=== PATIENT | male | born 1940 | race Caucasian/White ===

== ENCOUNTER → 2017-03-20 | Outpatient (CLI) | payer BC ==
[~2017-03-20] MED LIST: ASPI-435 PO; ATOR10TA82 PO; CALCTAB65 PO; IRBE1TAB48 PO; IRBE1TAB50 PO; METO25TA3 PO; NTRGSL/4 UT; TIMO0.2534 OP
== END | disposition home or self-care (01) ==
LOC: C.LABPVFM 15:12
PROVIDERS: ATTEND Urology
DX: C61 Malignant neoplasm of prostate (principal)

== ENCOUNTER → 2017-04-11 | Outpatient (CLI) | payer BC ==
[2017-04-11 13:08] LABS: CALCIUM 8.9 mg/dl (8.5-10.1)
[2017-04-11 13:12] LABS: ALT/SGPT 23 U/L (12-78); BLOOD UREA NITROGEN 28 mg/dl (7-18); BUN/CREATININE RATIO 30.8 (10-20); CARBON DIOXIDE 26 mmol/L (21-32); CHLORIDE 109 mmol/L (98-107); CHOLESTEROL 110 mg/dl (0-200); GLUCOSE 117 mg/dl (70-99); SODIUM 141 mmol/L (136-145); TRIGLYCERIDES 66 mg/dl (0-150); VERY LOW DENSITY LIPOPROT CALC 13 mg/dl
[2017-04-11 13:16] LABS: ALB/GLOB RATIO 0.9 (0.9-2); ALKALINE PHOSPHATASE 38 U/L (45-117); AST/SGOT 21 U/L (15-37); CHOLESTEROL/HDL RATIO 2.3; HDL CHOLESTEROL 48 mg/dl; LDL CHOLESTEROL CALCULATED 49 mg/dl
[2017-04-11 13:43] LABS: ESTIMATED AVERAGE GLUCOSE 134 mg/dl; HA1C FLAG Normal (Normal)
== END | disposition home or self-care (01) ==
LOC: C.LABPVFM 08:05
PROVIDERS: ATTEND Family Medicine
DX: I10 Essential (primary) hypertension (principal); E78.00 Pure hypercholesterolemia, unspecified; C61 Malignant neoplasm of prostate; R73.01 Impaired fasting glucose; M54.5 Low back pain

== ENCOUNTER → 2017-06-19 | Outpatient (CLI) | payer BC ==
[~2017-06-19] MED LIST changes: -ATOR10TA82 PO; +ATOR10TA88 PO; +OPTIRAY 320 IV PRN
--- NOTE | 2017-06-19 11:38 | DIAGNOSTIC IMAGING REPORT ---
ABD/PELVIS IV AND ORAL CONT CT DOSE: 758.49 mGycm HISTORY: Pancreatic lesion R93.8 Abnormal finding on [id number] Pancreatic [id number] TECHNIQUE: Multiaxial CT images of the abdomen and pelvis were performed following the use of intravenous and oral contrast. A dose lowering technique was utilized adhering to the principles of ALARA. COMPARISON STUDY: 06/18/2016 FINDINGS: Lung bases are clear. Small fixed lateral hernia unchanged. Liver is uniform. Gallstones are present. Kidneys show minimal cortical scarring but are otherwise unremarkable. The adrenal glands are normal. The appearance of the pancreas and is unchanged. The cystic changes of the pancreas previously described have not progressed and appear stable. There is no dilatation of the pancreatic ductal system nor is there evidence for dilatation of the biliary ductal system. The remainder of the abdomen and pelvis otherwise demonstrates stable postoperative changes to the low pelvic region. Bowel pattern is considered nonobstructive. There is no evidence for abnormal adenopathy within the abdominal pelvic or inguinal regions. IMPRESSION: 1. Stable exam compared to the prior study. 2. Cystic pancreatic changes remain stable. 3. No new or interval finding compared to the prior study. 4. Routine one-year surveillance CT scan is suggested. The above report was generated using voice recognition software. It may contain grammatical, syntax or spelling errors. Electronically signed by: Lincoln Wang M.D. 06/19/2017 11:37 AM Dictated Date/Time: 06/19/2017 11:33 AM
== END | disposition home or self-care (01) ==
LOC: C.CTS 08:37
PROVIDERS: ATTEND Nurse Practitioner
DX: K86.9 Disease of pancreas, unspecified (principal); R93.8 Abnormal findings on diagnostic imaging of other specified body structures

== ENCOUNTER → 2017-07-13 | Day surgery (SDC) | payer BC ==
[2017-07-09 13:59] VITALS: Ht 167.6 cm; Wt 85.5 kg
[~2017-07-13] VITALS: Ht 167.6 cm; Wt 85.5 kg
[~2017-07-13] MED LIST changes: -IRBE1TAB50 PO; -OPTIRAY 320 IV PRN; +PROPOFOL IV EMULSION 10 MG/ML 20 ML VIAL IV ONE; +SODIUM CHLORIDE 0.9% 500ML 500 ML IV ONE; -TIMO0.2534 OP
--- NOTE | 2017-07-13 15:00 | Endo History and Physical ---
History & Physical Date of Service: Jul 13, 2017. Chief Complaint: history of polyps Referring Physician: Dr. Montilla History of Present Illness 77 yo CM who presents for colonoscopy secondary to history of colon polyps. Past Medical History Cancer Past Surgical History Hx Cardiac Surgery: Yes (HEART CATH, STENT X1) Hx Internal Defibrillator: No Hx Pacemaker: No Hx Abdominal Surgery: Yes (APPY) Hx of Implantable Prosthesis: No Hx Post-Op Nausea and Vomiting: No Hx Cancer Surgery: Yes (PROSTATECTOMY) Hx Thoracic Surgery: No Hx Orthopedic: No Hx Urinary Tract Surgery: No Family History None Social History Smoking Status: Never Smoker Hx Substance Use: No Hx Alcohol Use: No Allergies Coded Allergies: No Known Allergies (Verified , 07/09/17) Current Medications Reported Home Medications Medications Dose Route/Sig Max Daily Dose Days Date Category Irbesartan 150 Mg Tab 1 Tab PO QAM 07/09/17 Reported Calcium 500 + D (Calcium Carbonate-Vitamin D) 1 Tab Tab 1 Tab PO HS 09/24/15 Reported Aspirin 81 (Aspirin) 81 Mg Tab 1 Tab PO QAM 08/15/15 Reported Nitrostat (Nitroglycerin) 0.4 Mg Tab 0.4 Mg UT UD PRN 06/13/08 Reported Lipitor (Atorvastatin Calcium) 10 Mg Tab 10 Mg PO HS 06/13/08 Reported Toprol-Xl (Metoprolol Succinate) 25 Mg Tabcr 0.5 Tab PO BID 06/13/08 Reported Vital Signs Weight (Kilograms): 85.45 Height (Feet): 5 Height (Inches): 6 Date Time Temp Pulse Resp B/P (MAP) Pulse Ox O2 Delivery O2 Flow Rate FiO2 07/13/17 14:47 36.4 49 20 139/70 (93) 96 Room Air Physical Exam General Appearance: WD/WN, no apparent distress Respiratory/Chest: Auscultation: breath sounds normal Cardiovascular: Heart Auscultation: RRR Abdomen: Bowel Sounds: normal Inspection & Palpation: soft, non-distended, no tenderness, guarding & rebound Assessment and Plan Assessment: 77 yo CM who presents for colonoscopy secondary to history of colon polyps. Plan: Proceed with colonoscopy.
--- NOTE | 2017-07-13 16:21 | GI REPORT ---
Procedure Date: 07/13/2017 3:38 PM Procedure: Colonoscopy Indications: High risk colon cancer surveillance: Personal history of colonic polyps Medicines: Monitored Anesthesia Care Complications: No immediate complications. Estimated Blood Loss: Estimated blood loss: none. Procedure: Pre-Anesthesia Assessment: - Prior to the procedure, a History and Physical was performed, and patient medications and allergies were reviewed. The patient's tolerance of previous anesthesia was also reviewed. The risks and benefits of the procedure and the sedation options and risks were discussed with the patient. All questions were answered, and informed consent was obtained. Prior Anticoagulants: The patient has taken aspirin, last dose was 7 days prior to procedure. ASA Grade Assessment: II - A patient with mild systemic disease. After reviewing the risks and benefits, the patient was deemed in satisfactory condition to undergo the procedure. After I obtained informed consent, the scope was passed under direct vision. Throughout the procedure, the patient's blood pressure, pulse, and oxygen saturations were monitored continuously. The scope was introduced through the anus and advanced to the terminal ileum. The colonoscopy was performed without difficulty. The patient tolerated the procedure well. The quality of the bowel preparation was good. The terminal ileum, ileocecal valve, appendiceal orifice, and rectum were photographed. Findings: Four sessile polyps were found in the sigmoid colon and in the ascending colon. The polyps were 4 to 8 mm in size. These polyps were removed with a hot snare. Resection and retrieval were complete. To prevent bleeding after the polypectomy, one hemostatic clip was successfully placed (MR conditional). There was no bleeding at the end of the procedure. Multiple small-mouthed diverticula were found in the sigmoid colon. 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 Non-bleeding internal hemorrhoids were found during retroflexion. The hemorrhoids were small. Impression: - Four 4 to 8 mm polyps in the sigmoid colon and in the ascending colon, removed with a hot snare. Resected and retrieved. Clip (MR conditional) was placed. - Diverticulosis in the sigmoid colon. - Multiple non-bleeding colonic angioectasias. - Non-bleeding internal hemorrhoids. Recommendation: - Resume previous diet. - Continue present medications. - Repeat colonoscopy for surveillance based on pathology results. - Return to primary care physician as previously scheduled. Danie Brannon DO 07/13/2017 4:21:08 PM This report has been signed electronically. Note Initiated On: 07/13/2017 3:38 PM I attest to the content of the Intraoperative Record and orders documented therein, exceptions below
--- NOTE | 2017-07-13 16:22 | Discharge Instructions ---
Endoscopy Patient Instructions Date / Procedure(s) Performed Jul 13, 2017. Colonoscopy Allergy Information Coded Allergies: No Known Allergies (Verified , 07/09/17) Discharge Date / Findings Jul 13, 2017. Colon polyps Diverticulosis Radiation proctitis Internal hemorrhoids Medication Instructions Stopped Medication(s): stopped ASA last Thursday OK to resume all medications today as prescribed Reported Home Medications Medications Dose Route/Sig Max Daily Dose Days Date Category Irbesartan 150 Mg Tab 1 Tab PO QAM 07/09/17 Reported Calcium 500 + D (Calcium Carbonate-Vitamin D) 1 Tab Tab 1 Tab PO HS 09/24/15 Reported Aspirin 81 (Aspirin) 81 Mg Tab 1 Tab PO QAM 08/15/15 Reported Nitrostat (Nitroglycerin) 0.4 Mg Tab 0.4 Mg UT UD PRN 06/13/08 Reported Lipitor (Atorvastatin Calcium) 10 Mg Tab 10 Mg PO HS 06/13/08 Reported Toprol-Xl (Metoprolol Succinate) 25 Mg Tabcr 0.5 Tab PO BID 06/13/08 Reported Provider Instructions Activity Restrictions - No exercising or heavy lifting for 24 hours. - Do not drink alcohol the day of the procedure. - Do not drive a car or operate machinery until the day after the procedure. - Do not make any important decisions or sign important papers in 24 hours after the procedure. Following Day: - Return to full activity which may include returning to work/school. Diet Start your diet with liquids and light foods (jello, soup, juice, toast). Then eat your usual diet if not nauseated. Treatment For Common After Affects For mild abdominal pain, bloating, or excessive gas: - Rest - Eat lightly - Lie on right side Follow-Up Information Follow-up with Dr. Montilla as scheduled Anesthesia Information What You Should Know You have had a procedure that required some medicine to reduce anxiety and discomfort. This treatment is called moderate sedation. After receiving the treatment, you may be sleepy, but you will be able to breathe on your own. The effects of the treatment may last for several hours. Follow these instructions along with Activity/Diet recommendations noted above: * Do NOT do anything where dizziness or clumsiness would be dangerous. * Rest quietly at home today, then you can be up and about tomorrow. * Have a responsible person stay with you the rest of today. * You may have had an I.V. today. If so, you may take the dressing off later today. Recommendations Call your doctor if: * Trouble breathing * Continuous vomiting for more than 24 hours * Temperature above 101 degrees * Severe abdominal pain or bloating * Pain not relieved by pain medicine ordered * There is increased drainage or redness from any incision * A large amount of rectal bleeding greater than 2-3 tablespoons. (If you had a polyp/s removed or have hemorrhoids, a small amount of blood - from the rectum is to be expected.) * You have any unanswered questions or concerns. IN THE EVENT OF A SERIOUS EMERGENCY, GO TO THE NEAREST EMERGENCY ROOM Your discharge instructions were prepared by provider Danie Brannon. Patient Instructions Signature Page Phillip Patel Patient (or Guardian) Signature/Date: I have read and understand the instructions given to me by my caregivers. Caregiver/RN/Doctor Signature/Date: The above-named patient and/or guardian has received patient instructions on this date. + Original Patient Signature Page (only) stays with chart. Please make copy for patient.
--- NOTE | 2017-07-13 16:42 | Anesthesiology Progress Note ---
Anesthesia Post Op Note Date & Time Jul 13, 2017 at 16:42 Vital Signs Pain Intensity: 0 Vital Signs Past 12 Hours Date Time Temp Pulse Resp B/P (MAP) Pulse Ox O2 Delivery O2 Flow Rate FiO2 07/13/17 16:33 49 20 140/66 (90) 98 Room Air 07/13/17 16:18 47 20 99/58 (72) 97 Room Air 07/13/17 14:47 36.4 49 20 139/70 (93) 96 Room Air Notes Mental Status: alert / awake / arousable, participated in evaluation Pt Amnestic to Procedure: Yes Nausea / Vomiting: adequately controlled Pain: adequately controlled Airway Patency, RR, SpO2: stable & adequate BP & HR: stable & adequate Hydration State: stable & adequate Anesthetic Complications: no major complications apparent
[2017-07-13 16:48] VITALS: BP 150/71; PULSE 49; O2SAT 99
== END | disposition home or self-care (01) ==
LOC: C.GI 13:59
PROVIDERS: ATTEND Internal Medicine
DX: Z12.11 Encounter for screening for malignant neoplasm of colon (principal); D12.5 Benign neoplasm of sigmoid colon; D12.2 Benign neoplasm of ascending colon; K57.30 Diverticulosis of large intestine without perforation or abscess without bleeding; K64.8 Other hemorrhoids; Z86.010 Personal history of colon polyps; Z79.82 Long term (current) use of aspirin; Z79.899 Other long term (current) drug therapy

== ENCOUNTER → 2017-09-01 | Outpatient (CLI) | payer BC ==
[~2017-09-01] MED LIST changes: +ATOR10TA82 PO; -ATOR10TA88 PO; -PROPOFOL IV EMULSION 10 MG/ML 20 ML VIAL IV ONE; -SODIUM CHLORIDE 0.9% 500ML 500 ML IV ONE
[2017-09-01 13:04] VITALS: BP 159/86; PULSE 50; TEMP 36.5; O2SAT 96
--- NOTE | 2017-09-01 14:00 | Radiation Oncology Follow-Up ---
Radiation Oncology Follow-Up Date of Visit Sep 01, 2017. Reason For Visit annual follow up Radiation Completion Date finished 11-13-2015 Diagnosis (1) Prostate cancer Status: Resolved Onset Date: 03/28/2008 Location: left lobe of the prostate Histology Subtype: adenocarcinoma Stage: ll (A) Permanent Comment: Rising PSA, pretreatment PSA 4.5 Status post ultrasound-guided biopsies 03/28/2008 revealing adenocarcinoma 3+4 Status post radical prostatectomy with pelvic lymph node dissection 06/13/2008 Stage pTII [id number] stage IIA Perineural invasion and extraprostatic extension Post prostatectomy rising PSA Initiation of Lupron suppression 09/17/2015 Status post completion of salvage radiation therapy 11/13/2015 received 7040 cGy Last Edited By: Julia Correa on Nov 20, 2015 11:03 History of Present Illness Mr. Patel presented in 2007 with an elevated prostate-specific antigen of 4.5. He underwent ultrasound-guided biopsy on 03/28/2008. A total of 12 biopsies were taken with a volume of 72 g. Biopsies of the right base, right apex, left base and left mid gland were benign. Biopsy from the right mid gland revealed atypical small acinar proliferation. One of 2 biopsies in the left apex were positive for adenocarcinoma Fence grade of 3+4 with no perineural invasion identified. Case: [id number]. Patient ultimately opted to proceed with a radical prostatectomy. This was performed by Dr. Gallagher on 06/13/2008. Left and right obturator lymph nodes were sampled and were negative. The radical prostatectomy specimen revealed a static adenocarcinoma Hayden grade of 3+4 with involvement of the left side of the gland, anterior and posterior extending from apex to base. The tumor represented only approximately 5% of the tissue examined area there was however evidence of perineural invasion and there was evidence of extra prostatic extension. No angiolymphatic invasion was seen. All margins were negative with no evidence of seminal vesicle involvement. Case:[id number]. The pathologic stage was therefore pT3 pN0. The patient was followed with serial prostate-specific antigens. On 09/20/2008 prostate-specific antigen was less than 0.1. 12/27/2008 less than 0.5. It remained at less than 0.5 through 05/25/2010. On it was less than 0.13 and remained there through 08/25/2012. On 07/01/2013 a slight rise to 0.15 was noted. On 10/18/2013 it remained at 0.15. However on 04/27/2014 it increased to 0.68 and ultimately on 06/30/2015 it increased to 0.39. This is compatible with recurrent disease. Dr. Crespo ordered a whole body bone scan performed on 11/2014. This showed no evidence of bony metastatic disease. He also ordered a CT scan of the abdomen and pelvis on May 16 this confirmed postoperative changes from the prostatectomy and pelvic carri dissection. There is no evidence of metastatic disease in the abdomen or pelvis. A 2.2 cm lesion either within or adjacent to the uncinate process of the pancreas was identified. This measured water attenuation and was likely related to the pancreas. Top differential considerations would include IPMA and, serous cystadenoma or possibly a mucinous cystic neoplasm neoplasia. An abnormal lymph node adjacent to the pancreas was considered less likely. Specifically the location and appearance however was not typical for metastatic prostate cancer. A similar appearing lesion is also suggested within the pancreatic body. Correlation with prior images were therefore suggested. Dr. Crespo discussed the implication of a rising prostate-specific antigen and recommended consideration of salvage radiation. He underwent radiation therapy and was treated from 09/18/2015 to 11/13/2015. He received 7040 cGy. Interim History He completed an AUA score sheet and gave a score of 3. He unfortunately has developed increasing problems with leakage dribbling and incontinence. This is occurred over the past 4 months. He now wears a pad daily. He has had some embarrassing episodes. There is excess amount of leakage. He denies burning or pain. He has no bladder pressure. There is no foul order to the urine. He has not been placed on any new medications. He completed and expanded prostate cancer index composite for clinical practice and gave a score of 12 of 12 and urinary incontinence symptoms. He gave a score of 2 of 12 urinary irritation symptoms. He gave a score 0 of 12 bowel symptoms. He gave a score 7 of 12 sexual symptoms. He gave a score of 0 12 and hormonal vitality symptoms. His total was 21 of 60. He had a recheck PSA on 03/20/2017. In that was less than 0.010. The hormonal suppression that he was on was a brief time. Last year we had discussed the CT scan that had shown a pancreatic cyst. His PCP did order a follow-up CT and that is stable. Allergies Coded Allergies: No Known Allergies (Verified , 07/09/17) Home Medications Scheduled Aspirin (Aspirin 81), 1 TAB PO QAM Atorvastatin (Lipitor), 10 MG PO HS Calcium Carbonate-Vitamin D (Calcium 500 + D), 1 TAB PO HS Irbesartan (Irbesartan), 1 TAB PO QAM Metoprolol Succ (Toprol Xl) (Toprol-Xl), 0.5 TAB PO BID Scheduled PRN Nitroglycerin (Nitrostat), 0.4 MG UT UD PRN for Chest Pain Review of Systems Gastrointestinal: Symptoms: WNL Oral: Symptoms: No Problems Respiratory: Symptoms: WNL Urinary: Comments: leakage - does not know he is having the leakage, nocturia times 2 - 3 Skin: Symptoms: No Problems Physical Exam Vital Signs Date Time Temp Pulse Resp B/P (MAP) Pulse Ox O2 Delivery O2 Flow Rate FiO2 09/01/17 13:04 36.5 50 16 159/86 96 Pain: Side: Bilateral Patient Pain Scale: 0 - 10 Initial Pain Intensity: 0.0 Fatigue: None General Appearance: no apparent distress Eyes: normal inspection, EOMI ENT: normal ENT inspection, hearing grossly normal Respiratory/Chest: lungs clear, no respiratory distress, no accessory muscle use Cardiovascular: regular rate, rhythm, no gallop, no murmur Abdomen: non tender, soft, no organomegaly Anal / Rectum: Mild external and internal hemorrhoids. Normal sphincter tone. No rectal masses no rectal bleeding. Prostate bed is flat. Extremities: no pedal edema Neurologic/Psychiatric: no motor/sensory deficits, alert, normal mood/affect Skin: warm/dry Laboratory Studies Test 09/01/17 13:33 Assessment & Plan Plan: An order was given for him to have a PSA in one month. He is due in August. He is going to be having blood work performed by his primary care physician. He'll have a PSA drawn at that time also. He'll be notified as to results. Today we did obtain a urine and urine ASSEMBLY RIVETER to evaluate for possible infection. We did discuss Kegel exercises. We also discussed physical therapy for urinary incontinence. He stated that he did recall previously discussing this with Dr. Crespo. He did not receive any physical therapy after his prostatectomy. He states his symptoms of incontinence resolved. These unfortunately have now recurred. I've asked her to make an appointment with Dr. Crespo sooner if he continues to have symptoms and the urinalysis was negative. He made benefit from a referral for physical therapy help improve his incontinence. He'll otherwise return to our office in 1 year. Total Time In Follow-Up I spent 20 minutes speaking to the patient and performing examination. I spent 15 minutes reviewing information in completing this note. Copy To Jl Montilla M.D.; Amado Crespo MD
[2017-09-01 14:09] LABS: URINE APPEARANCE CLEAR (CLEAR); URINE BILIRUBIN NEG (NEG); URINE COLOR YELLOW; URINE NITRITE NEG (NEG); URINE PH 7.5 (4.5-7.5); URINE SPECIFIC GRAVITY 1.022 (1.000-1.030); UROBILINOGEN NEG (NEG); ZZUR CULT IF INDIC CLEAN CATCH NO
[2017-09-01 14:11] LABS: MANUAL MICROSCOPIC REQUIRED? NO; REVIEW REQ? NO
== END | disposition home or self-care (01) ==
LOC: C.ONC 12:40
PROVIDERS: ATTEND Physician Assistant Medical
DX: Z08 Encounter for follow-up examination after completed treatment for malignant neoplasm (principal); Z92.3 Personal history of irradiation; Z85.46 Personal history of malignant neoplasm of prostate

== ENCOUNTER → 2017-09-26 | Outpatient (CLI) | payer BC ==
[2017-09-26 13:42] LABS: ESTIMATED AVERAGE GLUCOSE 128 mg/dl; HA1C FLAG Normal (Normal)
[2017-09-26 13:47] LABS: ALT/SGPT 25 U/L (12-78); AST/SGOT 20 U/L (15-37); BLOOD UREA NITROGEN 21 mg/dl (7-18); BUN/CREATININE RATIO 23.2 (10-20); CALCIUM 8.7 mg/dl (8.5-10.1); CARBON DIOXIDE 25 mmol/L (21-32); CHLORIDE 109 mmol/L (98-107); CREATININE 0.92 mg/dl (0.60-1.40); GLUCOSE 103 mg/dl (70-99); SODIUM 140 mmol/L (136-145)
[2017-09-26 13:49] LABS: ALB/GLOB RATIO 1.1 (0.9-2); ALKALINE PHOSPHATASE 43 U/L (45-117); CHOLESTEROL 112 mg/dl (0-200); CHOLESTEROL/HDL RATIO 1.7; HDL CHOLESTEROL 66 mg/dl; LDL CHOLESTEROL CALCULATED 35 mg/dl; TRIGLYCERIDES 56 mg/dl (0-150); VERY LOW DENSITY LIPOPROT CALC 11 mg/dl
== END | disposition home or self-care (01) ==
LOC: C.LABPVFM 08:19
PROVIDERS: ATTEND Family Medicine
DX: I10 Essential (primary) hypertension (principal); I25.10 Atherosclerotic heart disease of native coronary artery without angina pectoris; E78.00 Pure hypercholesterolemia, unspecified; R73.01 Impaired fasting glucose; R93.8 Abnormal findings on diagnostic imaging of other specified body structures

== ENCOUNTER → 2018-06-29 | Outpatient (CLI) | payer BC ==
[~2018-06-29] MED LIST changes: +OPTIRAY 320 IV PRN
--- NOTE | 2018-06-29 16:04 | DIAGNOSTIC IMAGING REPORT ---
ABDOMEN AND PELVIS CT WITH IV AND ORAL CONTRAST CT DOSE: 533.44 mGy.cm HISTORY: D49.0 IPMN (intraductal papillary mucinous neoplasm) TECHNIQUE: Multiaxial CT images of the abdomen and pelvis were performed following the use of intravenous and oral contrast. A dose lowering technique was utilized adhering to the principles of ALARA. COMPARISON STUDY: Abdomen and pelvis CT 06/19/2017. Abdomen and pelvis CT 06/18/2016. Abdomen and pelvis CT 07/17/2015. FINDINGS: There is extensive coronary artery calcification. Mild cardiomegaly is noted. 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 The liver, spleen, adrenal glands and kidneys are unremarkable with exception of bilateral renal scarring. There are gallstones within the gallbladder. Mild pancreatic ductal dilatation is unchanged. The duct measures 4 mm in caliber. A cystic lesion adjacent to the uncinate process and pancreatic head, measuring 2.2 cm is unchanged since prior CT of July 17, 2015. An additional cystic lesion measuring 1.6 cm within the uncinate process is unchanged. There are smaller cystic lesions within the pancreatic head. These are also unchanged. Pancreatic parenchymal calcifications are noted. There is no biliary ductal dilatation. No abdominal or pelvic lymphadenopathy is present. The prostate gland is surgically absent. There are clips from lymph node dissection. There is extensive sigmoid diverticulosis without evidence for acute diverticulitis. No suspicious skeletal lesions are identified. Small left-sided neural hernia containing fat and a single sigmoid diverticulum. This is also unchanged. No bowel wall thickening or obstruction. IMPRESSION: 1. Overall, no significant change compared to the prior studies. 2. No change in multiple cystic pancreatic lesions and mild pancreatic ductal dilatation since CT of July 17, 2015. These are indeterminate although likely reflect side branch intraductal papillary mucinous neoplasms. A follow-up CT in one year to ensure stability is recommended. 3. Cholelithiasis. Electronically signed by: Ambrocio Wilks M.D. 06/29/2018 4:02 PM Dictated Date/Time: 06/29/2018 3:53 PM
== END | disposition home or self-care (01) ==
LOC: C.CTS 13:15
PROVIDERS: ATTEND Family Medicine
DX: D49.0 Neoplasm of unspecified behavior of digestive system (principal); K80.20 Calculus of gallbladder without cholecystitis without obstruction

== ENCOUNTER 2019-05-04 18:47 | Inpatient (IN) ==
--- NOTE | 2019-05-04 19:28 | Emergency Department Note ---
ED Visit Note I assisted Dr. Guevara in the care of this patient. Please see attending note for details of ED course. . Resident Activity Tracking Resident Involvement: Resident Care Provided Care Provided: Adult ED : Stroke Qualifiers: CVA mechanism: unspecified Qualified Code(s): I63.9 - Cerebral infarction, unspecified
[2019-05-04] MEDS ORDERED: SODIUM CHLORIDE 0.9% 1000ML 1,000 ML IV SCH (19:30)
[2019-05-04 19:53] LABS: Basophils # (auto) 0.01 K/uL (0-0.2); Basophils % (auto) 0.1 %; Eosinophils # (auto) 0.13 K/uL (0-0.5); Eosinophils % (auto) 1.8 %; Hematocrit (blood only) 45.6 % (42-52); Hemoglobin 16.2 g/dL (14.0-18.0); Immature Granulocytes # (auto) 0.01 K/uL (0.00-0.02); Immature Granulocytes % (auto) 0.1 %; Lymphocytes # (auto) 2.12 K/uL (1.2-3.4); Lymphocytes % (auto) 29.2 %; Mean Corpuscular Hgb Conc 35.5 g/dL (32-36); Mean Corpuscular Volume 89.4 fL (80-100); Mean Platelet Volume 9.7 fL (7.4-10.4); Monocytes # (auto) 0.83 K/uL (0.11-0.59); Monocytes % (auto) 11.4 %; Neutrophils # (auto) 4.17 K/uL (1.4-6.5); Neutrophils % (auto) 57.4 %; Platelet Count 222 K/uL (130-400); RDW Coefficient of Variation 13.8 % (11.5-14.5); RDW Standard Deviation 45.1 fL (36.4-46.3); White Blood Count 7.27 K/uL (4.8-10.8)
[2019-05-04 19:54] LABS: Partial Thromboplastin Ratio 0.8; Partial Thromboplastin Time 21.8 Seconds (21.0-31.0)
--- NOTE | 2019-05-04 20:02 | CT Scan Report ---
CT head/brain wo con CLINICAL HISTORY: 78 years-old Male presenting with Stroke evaluation, right-sided numbness. TECHNIQUE: Multidetector CT imaging of the head was performed without the use of intravenous contrast . IV contrast: None. One or more dose lowering techniques were used consistent with the principles of ALARA (as low as reasonably achievable), including automatic exposure control, mA or kV adjustment t o individual patient size, and/or use of iterative reconstruction. COMPARISON: None. CT DOSE (mGy.cm): The estimated cumulative dose is 537.48 mGy.cm. FINDINGS: Front Office Manager topogram: The patient is edentulous. Ventricles and sulci normal in size. No hemorrhage. Periventricular and subcortical white matter hypo attenuation, nonspecific but likely indicative of chronic small vessel ischemic change. Asymmetric hy poattenuation of the hippocampus and medial left temporal lobe (series 2 image 10). Regional sulcal e ffacement suggests acuity. Additional focal hypoattenuation in the left thalamus, age-indeterminate l acunar infarct. No acute territorial infarct. No mass effect or midline shift. No extra-axial fluid c ollection. Evidence of chronic sinusitis in the maxillary sinuses with postsurgical changes in the pa ranasal sinuses. Calvarium intact. IMPRESSION: 1. Findings suspicious for acute infarct in the left medial temporal lobe potentially involving the left hippocampus. 2. Age-indeterminate lacunar infarct in the left thalamus. Acute infarct cannot excluded. MRI could be considered for further evaluation. The report will be called/faxed according to standard departmental protocol for a critical finding. Electronically signed by: Luis Hair M.D. 05/04/2019 8:01 PM
[2019-05-04 20:08] LABS: Alanine Aminotransferase 25 U/L (12-78); Albumin Level 4.5 gm/dl (3.4-5.0); Aspartate Aminotransferase 21 U/L (15-37); BUN Creatinine Ratio 23.1 (10-20); Blood Urea Nitrogen 28 mg/dl (7-18); Carbon Dioxide 28 mmol/L (21-32); Chloride 105 mmol/L (98-107); Creatinine Clr Calc Pharmacy 49.6 ml/min; Est GFR (African American) 65.1; Est GFR (Non-African American) 56.2; Glucose 132 mg/dl (70-99); Magnesium 2.5 mg/dl (1.8-2.4); Potassium 3.8 mmol/L (3.5-5.1); Sodium 141 mmol/L (136-145)
[2019-05-04 20:13] LABS: Albumin Globulin Ratio 1.1 (0.9-2); Alkaline Phosphatase 58 U/L (45-117); Bilirubin,Total 0.9 mg/dl (0.2-1); Globulin 4.1 gm/dl (2.5-4.0); Total Protein 8.6 gm/dl (6.4-8.2); Troponin I < 0.015 ng/ml (0-0.045)
[2019-05-04] MEDS ORDERED: OPTIRAY 320 125ml IV PRN (20:46)
--- NOTE | 2019-05-04 21:08 | CT Scan Report ---
CT angio neck with con CLINICAL HISTORY: 78 years-old Male presenting with right sided numbness. TECHNIQUE: Multidetector CT angiography of the neck was performed after the administration of intrave nous contrast. 3-D volumetric and/or maximum intensity projection (MIP) images were subsequently jayson nstructed for review. IV contrast: 121 mL of Optiray 320. One or more dose lowering techniques were u sed consistent with the principles of ALARA (as low as reasonably achievable), including automatic ex posure control, mA or kV adjustment to individual patient size, and/or use of iterative reconstructio n. Stenosis measurements were based on NASCET-like criteria (distal lumen diameter as the denominator for stenosis measurement). COMPARISON: None. CT DOSE (mGy.cm): The estimated cumulative dose is 525.19. FINDINGS: Clinical Pharmacy Specialist topogram: Unremarkable. Aortic arch: Normal three-vessel aortic arch with patent origins of the branch vessels. Innominate artery: Patent. Right subclavian artery: Patent. Right common carotid artery: Patent. Right internal and external carotid arteries: Calcified atherosclerotic plaque at the bifurcation wit hout stenosis of the origins of the right internal or external carotid arteries. Left common carotid artery: Patent. Left internal and external carotid arteries: Calcified atherosclerotic plaque at the bifurcation with less than 50% stenosis of the origin of the left internal carotid artery. The remainder of the left ICA is widely patent. Left ECA also patent. Left subclavian artery: Patent. Vertebral arteries: Codominant vertebral arteries. Origins and courses of the bilateral vertebral art eries patent. Other: Atherosclerotic plaque without significant stenosis of the cavernous segments of the internal carotid arteries. Hypoattenuation along the medial left temporal lobe as mentioned on noncontrast CT head performed earlier today. Degenerative changes of the cervical spine. Extensive chronic sinusitis and postsurgical changes of the paranasal sinuses. Lung apices clear. IMPRESSION: 1. Atherosclerosis with less than 50% stenosis of the origin of the left internal carotid artery. No other evidence of significant stenosis. No vessel occlusion or dissection. Electronically signed by: Luis Hair M.D. 05/04/2019 9:06 PM
--- NOTE | 2019-05-04 21:09 | CT Scan Report ---
CT angio head w con CLINICAL HISTORY: 78 years-old Male presenting with right sided numbness. TECHNIQUE: Multidetector CT angiography of the head was performed after the administration of intrave nous contrast. 3-D volumetric and/or maximum intensity projection (MIP) images were subsequently jayson nstructed for review. IV contrast: 121 mL of Optiray 320. One or more dose lowering techniques were u sed consistent with the principles of ALARA (as low as reasonably achievable), including automatic ex posure control, mA or kV adjustment to individual patient size, and/or use of iterative reconstructio n. COMPARISON: Noncontrast CT head performed earlier today. CT DOSE (mGy.cm): The estimated cumulative dose is 525.19 mGy.cm. FINDINGS: Soldering Inspector topogram: Unremarkable. Anterior circulation: Atherosclerosis of the cavernous segments of the internal carotid arteries. Int racranial portions of the internal carotid arteries patent to the level of the termini. Anterior cere bral arteries patent. Middle cerebral arteries patent. Anterior communicating artery patent. Posterior circulation: Codominant vertebral arteries. Intradural portions of the vertebral arteries p atent. Posterior inferior cerebellar arteries patent. Basilar artery patent. Anterior inferior cerebe llar arteries poorly visualized. Superior cerebellar arteries patent. Posterior cerebral arteries pat ent. Right posterior communicating artery (P-comm) patent. Left P-comm hypoplastic or aplastic. Dural venous sinuses: Patent. Other: Chronic sinusitis of the maxillary sinuses with suspected postsurgical changes. IMPRESSION: 1. No evidence of aneurysm, focal vessel occlusion, or significant stenosis of the intracranial lui ana luisa. Electronically signed by: Luis Hair M.D. 05/04/2019 9:08 PM
[2019-05-04] MEDS ORDERED: CLOPIDOGREL BISULFATE 75 MG TAB PO ONE (21:42)
[2019-05-04] MEDS ORDERED: CLOPIDOGREL BISULFATE 75 MG TAB ONE (21:48)
--- NOTE | 2019-05-04 21:52 | History & Physical Report ---
Date of Service May 04, 2019 Assessment & Plan (1) Hypertension: (2) Hypercholesterolemia: (3) CAD S/P percutaneous coronary angioplasty: (4) Prostate cancer: (5) Acute cerebral ischemia: 78-year-old male with past medical history of coronary artery disease status post angioplasty 13 years ago, prostate adenocarcinoma status post radical prostatectomy and radiation, hypertension, hyperlipidemia presents with right-sided weakness yesterday and now numbness. Acute cerebral ischemia: Based on exam mild deficit noted - right leg decreased sensation CT head: Suspicious acute infarct left medial temporal lobe potentially involving left hippocampus, age indeterminate lacunar infarct left thalamus cannot rule out if acute MRI indicated CTA head and neck: Atherosclerosis with less than 50% stenosis of the origin of the left internal carotid artery. No other evidence of significant stenosis. No vessel occlusion or dissection. No evidence of aneurysm, focal vessel occlusion, or significant stenosis of the intracranial arteries. Brain MRI: Pending Given dose of Plavix 75 mg in the ED Started on Plavix 75 mg every morning in addition to continuing home aspirin 81 mg daily Atorvastatin 10 mg increased to 40 mg daily Antihypertensives: Metoprolol 12.5 mg twice daily continued however irbesartan 300 mg every afternoon held for permissive hypertension A.m. 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 Continue home metoprolol 12.5 mg twice daily Hold irbesartan 300 mg QPM in the setting of allowing for permissive hypertension for stroke Home atorvastatin 10 mg daily increased to 40 mg daily Continue home aspirin 81 mg every morning Echo ordered History of prostate cancer in 2007 Had radical prostatectomy with pelvic lymph node dissection in May 2008 followed by Lupron suppression in September 2015 and salvage radiation in October 2015 DVT prophylaxis: SCDs Code: Full per discussion with patient and family Dispo: MedSurg with telemetry (6) IPMN (intraductal papillary mucinous neoplasm): History of Present Illness Chief Complaint: Right sided weakness and numbness Primary Care Provider: Jl Montilla MD 78-year-old male with past medical history of coronary artery disease status post angioplasty 13 years ago, prostate adenocarcinoma status post radical prostatectomy and radiation, hypertension, hyperlipidemia presents with right- sided weakness yesterday and now numbness. Patient reports taking out weeds yesterday when he felt lightheaded, nauseous, and for a couple minutes could not see anything. He rested and was then able to walk to his truck. However, he noticed difficulty pushing the gas pedal with his right foot. He also noticed right arm weakness. He denied any pain at that time. He was able to drive himself home and rested for the day. He woke up this morning feeling tired and when he went on a walk he noticed his right foot and leg were not tracking as well. His family then brought him to the emergency room. Currently he has some weakness and also reports numbness mainly in his right leg. He denies any fever, chills, headache, lightheadedness, shortness of breath, chest pain, nausea, vomiting, abdominal pain, diarrhea/constipation, dysuria, hematuria at this time Past medical history: coronary artery disease status post angioplasty 13 years ago, prostate adenocarcinoma status post radical prostatectomy and radiation, hypertension, hyperlipidemia Past surgical history: Radical prostatectomy and percutaneous coronary intervention with stent placement Social history: Never smoked denies alcohol use, has supportive family Allergies Allergy/AdvReac Type Severity Reaction Status Date / Time No Known Allergies Allergy Unknown Verified 05/04/19 20:10 Home Medications Home Medications Medication Instructions Recorded Confirmed Type aspirin 81 mg PO DAILY 05/04/19 05/04/19 History atorvastatin 10 mg PO DAILY 05/04/19 05/04/19 History calcium carbonate-vitamin D3 1 tab PO QPM 05/04/19 05/04/19 History [Calcium 500 + D (D3)] irbesartan 300 mg PO QPM 05/04/19 05/04/19 History metoprolol tartrate 12.5 mg PO BID 05/04/19 05/04/19 History Past Med/Surg History Medical History IPMN (intraductal papillary mucinous neoplasm) (Acute) Hypertension (Acute) Hypercholesterolemia (Acute) CAD S/P percutaneous coronary angioplasty (Acute) Family History Other Family history non-contributory Social History Preferred Language: Libyan Communication Ability: Effective Curb And Gutter Laborer Required: No Beliefs That Will Affect Care: None Current Living Situation: Spouse Other Information That Helps Us Care for You: No Feels Safe at Home: Yes Safety Concerns: Feels Safe At This Time Smoking Status: Never smoker Do You Dip or Chew Tobacco: No Second Hand Exposure: No Tobacco Cessation Education Requested by Patient: No Hx Alcohol Use: No Hx Substance Use: No Review of Systems Review of Systems: As per HPI Physical Exam 2 Physical Exam: General: In NAD Neuro: A & O x, CN 2-12 intact, no facial drop noted, negative pronator drift, strength 5/5 bilateral upper and lower extremities, sensation intact bilateral upper extremities, sensation decreased over R leg and foot compared to L side HEENT: moist mucous membranes Pulm: CTAB equal breath sounds bilaterally CV: RRR, no m/r/g, cap refill < 3 sec Abdomen: +BS, NTTP in all quadrants, non-distended Lower extremities: no LE edema or calf TTP Results & Data Vital Signs (Past 12 Hours) Vital Signs Temp Pulse Pulse Resp BP BP Pulse Ox 05/04/19 21:01 70 15 158/74 H 98 05/04/19 20:55 66 18 158/77 H 97 05/04/19 20:31 69 21 158/77 H 96 05/04/19 20:01 66 18 164/76 H 95 05/04/19 20:00 67 20 164/76 H 95 05/04/19 18:50 36.8 C 70 18 177/75 H 96 Laboratory Results Abnormal lab results 05/04/19 05/04/19 05/04/19 Range/Units 19:00 19:34 19:34 [place] # (Auto) 0.83 H (0.11-0.59) K/uL BUN 28 H (7-18) mg/dl BUN/Creatinine Ratio 23.1 H (10-20) Glucose 132 H (70-99) mg/dl POC Glucose 124 H (70-99) Magnesium 2.5 H (1.8-2.4) mg/dl Total Protein 8.6 H (6.4-8.2) gm/dl Globulin 4.1 H (2.5-4.0) gm/dl Diagnostic Findings CT head/brain wo con CLINICAL HISTORY: 78 years-old Male presenting with Stroke evaluation, right- sided numbness. TECHNIQUE: Multidetector CT imaging of the head was performed without the use of intravenous contrast. IV contrast: None. One or more dose lowering techniques were used consistent with the principles of ALARA (as low as reasonably achievable), including automatic exposure control, mA or kV adjustment to individual patient size, and/or use of iterative reconstruction. COMPARISON: None. CT DOSE (mGy.cm): The estimated cumulative dose is 537.48 mGy.cm. FINDINGS: Geological Engineer topogram: The patient is edentulous. Ventricles and sulci normal in size. No hemorrhage. Periventricular and subcortical white matter hypoattenuation, nonspecific but likely indicative of chronic small vessel ischemic change. Asymmetric hypoattenuation of the hi ppocampus and medial left temporal lobe (series 2 image 10). Regional sulcal effacement suggests acuity. Additional focal hypoattenuation in the left thalamus, age-indeterminate lacunar infarct. No acute territorial infarct. No mass effect or midline shift. No extra-axial fluid collection. Evidence of chronic sinusitis in the maxillary sinuses with postsurgical changes in the paranasal sinuses. Calvarium intact. IMPRESSION: 1. Findings suspicious for acute infarct in the left medial temporal lobe potentially involving the left hippocampus. 2. Age-indeterminate lacunar infarct in the left thalamus. Acute infarct cannot excluded. MRI could be considered for further evaluation. The report will be called/faxed according to standard departmental protocol for a critical finding. CT angio head w con CLINICAL HISTORY: 78 years-old Male presenting with right sided numbness. TECHNIQUE: Multidetector CT angiography of the head was performed after the administration of intravenous contrast. 3-D volumetric and/or maximum intensity projection (MIP) images were subsequently reconstructed for review. IV contrast: 121 mL of Optiray 320. One or more dose lowering techniques were used consistent with the principles of ALARA (as low as reasonably achievable), including automatic exposure control, mA or kV adjustment to individual patient size, and/or use of iterative reconstruction. COMPARISON: Noncontrast CT head performed earlier today. CT DOSE (mGy.cm): The estimated cumulative dose is 525.19 mGy.cm. FINDINGS: Geological Engineer topogram: Unremarkable. Anterior circulation: Atherosclerosis of the cavernous segments of the internal carotid arteries. Intracranial portions of the internal carotid arteries patent to the level of the termini. Anterior cerebral arteries patent. Middle cerebral arteries patent. Anterior communicating artery patent. Posterior circulation: Codominant vertebral arteries. Intradural portions of the vertebral arteries patent. Posterior inferior cerebellar arteries patent. Basilar artery patent. Anterior inferior cerebellar arteries poorly visualized. Superior cerebellar arteries patent. Posterior cerebral arteries patent. Right p osterior communicating artery (P-comm) patent. Left P-comm hypoplastic or aplastic. Dural venous sinuses: Patent. Other: Chronic sinusitis of the maxillary sinuses with suspected postsurgical changes. IMPRESSION: 1. No evidence of aneurysm, focal vessel occlusion, or significant stenosis of the intracranial arteries. CT angio neck with con CLINICAL HISTORY: 78 years-old Male presenting with right sided numbness. TECHNIQUE: Multidetector CT angiography of the neck was performed after the administration of intravenous contrast. 3-D volumetric and/or maximum intensity projection (MIP) images were subsequently reconstructed for review. IV contrast: 121 mL of Optiray 320. One or more dose lowering techniques were used consistent with the principles of ALARA (as low as reasonably achievable), including automatic exposure control, mA or kV adjustment to individual patient size, and/or use of iterative reconstruction. Stenosis measurements were based on NASCET-like criteria (distal lumen diameter as the denominator for stenosis measurement). COMPARISON: None. CT DOSE (mGy.cm): The estimated cumulative dose is 525.19. FINDINGS: Geological Engineer topogram: Unremarkable. Aortic arch: Normal three-vessel aortic arch with patent origins of the branch vessels. Innominate artery: Patent. Right subclavian artery: Patent. Right common carotid artery: Patent. Right internal and external carotid arteries: Calcified atherosclerotic plaque at the bifurcation without stenosis of the origins of the right internal or external carotid arteries. Left common carotid artery: Patent. Left internal and external carotid arteries: Calcified atherosclerotic plaque at the bifurcation with less than 50% stenosis of the origin of the left internal carotid artery. The remainder of the left ICA is widely patent. Left ECA also patent. Left subclavian artery: Patent. Vertebral arteries: Codominant vertebral arteries. Origins and courses of the bilateral vertebral arteries patent. Other: Atherosclerotic plaque without significant stenosis of the cavernous segments of the internal carotid arteries. Hypoattenuation along the medial left temporal lobe as mentioned on noncontrast CT head performed earlier today. Degenerative changes of the cervical spine. Extensive chronic sinusitis and postsurgical changes of the paranasal sinuses. Lung apices clear. IMPRESSION: 1. Atherosclerosis with less than 50% stenosis of the origin of the left internal carotid artery. No other evidence of significant stenosis. No vessel occlusion or dissection. Medications Administered Current Inpatient Medications Clopidogrel Bisulfate (Plavix) 75 mg PO NOW ONE Stop: 05/04/19 21:43 Sodium Chloride (Nss 1000ml) 1,000 mls @ 100 mls/hr IV .Q10H TITO Stop: 05/05/19 05:29 Last Admin: 05/04/19 21:06 Dose: 100 mls/hr Documented by: Ioversol (Optiray 320 125ml) 121 ml IV ONCE PRN PRN Reason: Interaction Checking Stop: 05/08/19 20:45 Last Admin: 05/04/19 20:49 Dose: 121 ml Documented by: Code Status & VTE Plan Code Status Full VTE Prophylaxis Plan VTE Prophylaxis will be ordered: Yes Supervising Physician Co-Signing Physician Notes Pt seen/examined in conjunction with resident MD Ling Koenig. Orders and plan of admission formulated with resident. 78 y/o M Hx CAD, prostate CA, HTN, HLD. Presenting with R sided numbness and reports R weakness one day prior. A CT on arrival to the ER demonstrated an acute infarct in the left medial temporal lobe involving the left hippocampus. This was confirmed on MRI. OE AAO x 3 S1,2 R CTAB NT, ND No CCE Motor exam is WNL - impaired LE sensation, no additional deficits. P: The pt is admitted with a CVA protocol. He will be evaluated by neurology. He has been placed on Plavix along with his daily ASA and we have increased his statin dose to 40mg from 10mg. He can likely restart his meds AM as his infarct most likely dates back 2 days. PG Care Time/CCT Total # of Minutes Spent Total Time Spent with Patient: Total time spent is greater than 50% in coordination of care (as documented) at patient's floor/unit and/or counseling patient: Resident Activity Tracking Resident Involvement: Resident Care Provided Care Provided: Adult Hospital Medicine
[2019-05-04] MEDS ORDERED: PHARMACIST DISCHARGE MED REC CONSULT PRN (22:59)
[2019-05-05] MEDS: CALCIUM 600MG + VIT D 400 IU TAB PO SCH ×2 (00:22→20:00)
[2019-05-05] MEDS: METOPROLOL TARTRATE 25 MG TAB PO SCH ×3 (00:22→20:00)
--- NOTE | 2019-05-05 02:07 | Emergency Department Note ---
Entered by Eitan Peres acting as a scribe for History of Present Illness General Chief complaint: TIA Symptoms Stated complaint: STROKE SYMTOMS Time Seen by Provider: 05/04/19 18:54 Source: patient History of Present Illness Provider complaint: Stroke like symptoms Onset (ago): day(s) 1 Location: head Radiation: extremity (Right lower) Pain Consistency: + other (Improving ) Relieved By: + none Exacerbated By: + none Associated symptoms: + weakness and + other (Positive numbness) The patient is an 78 year old male who presents to the Emergency Room with complaints of stroke like symptoms that started yesterday but are consistently improving throughout today. The patient states he was doing yard work yesterday around 1300 when he started feeling near syncopal. The patient then sat down and did lose his vision for a few seconds but he did not syncopize or fall. After this event he started feeling right sided weakness and numbness that has been i mproving since last night. However, currently he still has some right sided facial numbness along with right lower extremity numbness. Due to his right sided deficits, he is having trouble ambulating and balancing. The patient has a history of HLD, HTN, CAD, and TN and takes Aspirin daily. He does not have any history of TIA or stroke. Home Medications Home Medications Medication Instructions Recorded Confirmed Type aspirin 81 mg PO DAILY 05/04/19 05/04/19 History atorvastatin 10 mg PO DAILY 05/04/19 05/04/19 History calcium carbonate-vitamin D3 1 tab PO QPM 05/04/19 05/04/19 History [Calcium 500 + D (D3)] irbesartan 300 mg PO QPM 05/04/19 05/04/19 History metoprolol tartrate 12.5 mg PO BID 05/04/19 05/04/19 History Allergies Allergy/AdvReac Type Severity Reaction Status Date / Time No Known Allergies Allergy Unknown Verified 05/04/19 20:10 Past Med/Surg History Medical History IPMN (intraductal papillary mucinous neoplasm) (Acute) Hypertension (Acute) Hypercholesterolemia (Acute) CAD S/P percutaneous coronary angioplasty (Acute) Family History Other Family history non-contributory Social History Preferred Language: Polish Communication Ability: Effective Drug Clerk Required: No Beliefs That Will Affect Care: None Current Living Situation: Spouse Other Information That Helps Us Care for You: No Feels Safe at Home: Yes Safety Concerns: Feels Safe At This Time Smoking Status: Never smoker Do You Dip or Chew Tobacco: No Second Hand Exposure: No Tobacco Cessation Education Requested by Patient: No Hx Alcohol Use: No Hx Substance Use: No Review of Systems See HPI for pertinent positives & negatives. and A total of 10 systems reviewed and were otherwise negative Physical Exam Vital Signs Vital Signs - 24 hr 05/04/19 18:50 05/04/19 20:00 05/04/19 20:01 Temperature 36.8 C Temperature Source Oral Sepsis Recent Fever Within 48 Hours No Sepsis Action Taken by Nursing No Action Required Pulse Rate 70 67 Pulse Rate [Right Apical] 66 Pulse Rate from SpO2 Sensor 68 Respiratory Rate 18 20 18 Respiratory Effort / Characteristics Non-Labored Spontaneous Non-Labored Respiratory Depth Normal Normal Blood Pressure 177/75 H 164/76 H Blood Pressure [Left Arm] 164/76 H Blood Pressure Mean 109 105 Blood Pressure Mean [Left Arm] 105 Blood Pressure Position [Left Arm] Sitting Pulse Oximetry 96 95 95 Oxygen Delivery Method Room Air Room Air Room Air 05/04/19 20:31 05/04/19 20:55 05/04/19 21:01 Temperature Temperature Source Sepsis Recent Fever Within 48 Hours Sepsis Action Taken by Nursing Pulse Rate 69 70 Pulse Rate [Right Apical] 66 Pulse Rate from SpO2 Sensor 63 69 Respiratory Rate 21 18 15 Respiratory Effort / Characteristics Respiratory Depth Blood Pressure 158/77 H 158/74 H Blood Pressure [Left Arm] 158/77 H Blood Pressure Mean 104 102 Blood Pressure Mean [Left Arm] 104 Blood Pressure Position [Left Arm] Pulse Oximetry 96 97 98 Oxygen Delivery Method Room Air Room Air 05/04/19 21:31 Temperature Temperature Source Sepsis Recent Fever Within 48 Hours Sepsis Action Taken by Nursing Pulse Rate 61 Pulse Rate [Right Apical] Pulse Rate from SpO2 Sensor 63 Respiratory Rate 13 Respiratory Effort / Characteristics Respiratory Depth Blood Pressure 166/63 H Blood Pressure [Left Arm] Blood Pressure Mean 97 Blood Pressure Mean [Left Arm] Blood Pressure Position [Left Arm] Pulse Oximetry 97 Oxygen Delivery Method Room Air GENERAL: Awake, alert, well-appearing, in no distress HENT: Normocephalic, atraumatic. Oropharynx with dry mucous membranes and otherwise unremarkable. EYES: Normal conjunctiva. Sclera non-icteric. NECK: Supple. No nuchal rigidity. FROM. No JVD. RESPIRATORY: Clear to auscultation. CARDIAC: Regular rate, normal rhythm. Extremities warm and well perfused. Pulses equal. ABDOMEN: Soft, non-distended. No tenderness to palpation. No rebound or guarding. No masses. RECTAL: Deferred. MUSCULOSKELETAL: Chest examination reveals no tenderness. The back is symmetrical on inspection without obvious abnormality. There is no CVA tenderness to palpation. No joint edema. LOWER EXTREMITIES: Calves are equal size bilaterally and non-tender. No edema. No discoloration. NEURO: Normal sensorium. No sensory or motor deficits noted. Intact cerebellar function including finger to nose, alternating palms, and heel to lewis. 5/5 strength and SILT x4 extremities. Subjective decreased sensation of the right face and right extremities. SKIN: No rash or jaundice noted. Course 1899: The patient was evaluated in room B04B by Dr. Rupinder Foss [facility] , and a complete history and physical examination were performed. 2009: I spoke to Dr. Ashley [facility] Hospitalist about the patient's case and he said to call neurology. 2017: Dr. Rupinder Foss [facility] spoke with Dr. Libby Marr about the patient's case and he said to admit the patient. 2019: Both Dr. Bucio and Pretty updated the patient on results and the treatment plan. 2039: Dr. Rupinder Foss [facility] spoke to Dr. Ashley and he will be accepting the patient for further evaluation. Consultations Consultation #1: I spoke to Dr. Dion Kilpatrick [facility] Hospitalist about the patient's case and he said to call neurology. Time: 20:10 Consultation #2: Dr. Rupinder Foss [facility] spoke with Dr. Libby Marr about the patient's case and he said to admit the patient. Time: 20:18 Consultation #3: Dr. Rupinder Foss [facility] spoke to Dr. Ashley and he will be accepting the patient for further evaluation. Time: 20:40 Administered Medications Sodium Chloride (Nss 1000ml) 1,000 mls @ 100 mls/hr IV .Q10H TITO Stop: 05/05/19 05:29 Last Infusion: 05/04/19 22:45 Dose: 0 mls/hr Documented by: [id number] Admin: 05/04/19 21:06 Dose: 100 mls/hr Documented by: [id number] Ioversol (Optiray 320 125ml) 121 ml IV ONCE PRN PRN Reason: Interaction Checking Stop: 05/08/19 20:45 Last Admin: 05/04/19 20:49 Dose: 121 ml Documented by: [id number] Metoprolol Tartrate (Lopressor) 12.5 mg PO BID TITO Stop: 06/04/19 08:59 Last Admin: 05/05/19 00:22 Dose: 12.5 mg Documented by: [id number] Multivitamins/Minerals (Caltrate Plus) 1 tab PO QPM TITO Stop: 06/04/19 20:59 Last Admin: 05/05/19 00:22 Dose: 1 tab Documented by: [id number] Discontinued Medications Atorvastatin Calcium (Lipitor) 40 mg PO QAM TITO Stop: 06/04/19 08:59 Last Admin: 05/05/19 00:22 Dose: 40 mg Documented by: [id number] Clopidogrel Bisulfate (Plavix) Confirm Administered Dose 75 mg .ROUTE .STK-MED ONE Stop: 05/04/19 21:49 Last Admin: 05/04/19 21:52 Dose: 75 mg Documented by: [id number] Medical Decision Making Differential Diagnosis Differential Diagnosis includes but is not limited to dehydration, stroke, anemia, hypoglycemia, hyponatremia, hypernatremia, urinary tract infection, pneumonia, bronchitis, sepsis, gastroenteritis, additional abdominal pathology, metabolic abnormalities and infections. Medical Records Attestation: I reviewed the patient's medical records. Home Medications Current Medication List: was personally reviewed by me Laboratory Data Attestation: I reviewed the patient's lab results. Result diagrams: 05/04/19 19:34 05/04/19 19:34 Lab Results 05/04/19 05/04/19 05/04/19 Range/Units 19:00 19:34 19:34 WBC 7.27 (4.8-10.8) K/uL RBC 5.10 (4.7-6.1) M/uL Hgb 16.2 (14.0-18.0) g/dL Hct 45.6 (42-52) % MCV 89.4 (80-100) fL MCH 31.8 (25-34) pg MCHC 35.5 (32-36) g/dL RDW Std Deviation 45.1 (36.4-46.3) fL RDW Coeff of Katey 13.8 (11.5-14.5) % Plt Count 222 (130-400) K/uL MPV 9.7 (7.4-10.4) fL Immature Gran % (Auto) 0.1 % Neut % (Auto) 57.4 % Lymph % (Auto) 29.2 % [place] % (Auto) 11.4 % Eos % (Auto) 1.8 % Baso % (Auto) 0.1 % Immature Gran # (Auto) 0.01 (0.00-0.02) K/uL Neut # (Auto) 4.17 (1.4-6.5) K/uL Lymph # (Auto) 2.12 (1.2-3.4) K/uL [place] # (Auto) 0.83 H (0.11-0.59) K/uL Eos # (Auto) 0.13 (0-0.5) K/uL Baso # (Auto) 0.01 (0-0.2) K/uL PT 10.0 (9.0-12.0) Seconds INR 1.0 (0.9-1.1) APTT 21.8 (21.0-31.0) Seconds PTT Ratio 0.8 Sodium (136-145) mmol/L Potassium (3.5-5.1) mmol/L Chloride (98-107) mmol/L Carbon Dioxide (21-32) mmol/L Anion Gap (3-11) BUN (7-18) mg/dl Creatinine (0.6-1.4) mg/dl Est Cr Clr Drug Dosing ml/min Est GFR ( Amer) Est GFR (Non-Af Amer) BUN/Creatinine Ratio (10-20) Glucose (70-99) mg/dl POC Glucose 124 H (70-99) Calcium (8.5-10.1) mg/dl Magnesium (1.8-2.4) mg/dl Total Bilirubin (0.2-1) mg/dl AST (15-37) U/L ALT (12-78) U/L Alkaline Phosphatase (45-117) U/L Troponin I (0-0.045) ng/ml Total Protein (6.4-8.2) gm/dl Albumin (3.4-5.0) gm/dl Globulin (2.5-4.0) gm/dl Albumin/Globulin Ratio (0.9-2) / Range/Units 19:34 WBC (4.8-10.8) K/uL RBC (4.7-6.1) M/uL Hgb (14.0-18.0) g/dL Hct (42-52) % MCV (80-100) fL MCH (25-34) pg MCHC (32-36) g/dL RDW Std Deviation (36.4-46.3) fL RDW Coeff of Katey (11.5-14.5) % Plt Count (130-400) K/uL MPV (7.4-10.4) fL Immature Gran % (Auto) % Neut % (Auto) % Lymph % (Auto) % [place] % (Auto) % Eos % (Auto) % Baso % (Auto) % Immature Gran # (Auto) (0.00-0.02) K/uL Neut # (Auto) (1.4-6.5) K/uL Lymph # (Auto) (1.2-3.4) K/uL [place] # (Auto) (0.11-0.59) K/uL Eos # (Auto) (0-0.5) K/uL Baso # (Auto) (0-0.2) K/uL PT (9.0-12.0) Seconds INR (0.9-1.1) APTT (21.0-31.0) Seconds PTT Ratio Sodium 141 (136-145) mmol/L Potassium 3.8 (3.5-5.1) mmol/L Chloride 105 (98-107) mmol/L Carbon Dioxide 28 (21-32) mmol/L Anion Gap 7.0 (3-11) BUN 28 H (7-18) mg/dl Creatinine 1.21 (0.6-1.4) mg/dl Est Cr Clr Drug Dosing 49.6 ml/min Est GFR ( Amer) 65.1 Est GFR (Non-Af Amer) 56.2 BUN/Creatinine Ratio 23.1 H (10-20) Glucose 132 H (70-99) mg/dl POC Glucose (70-99) Calcium 10.0 (8.5-10.1) mg/dl Magnesium 2.5 H (1.8-2.4) mg/dl Total Bilirubin 0.9 (0.2-1) mg/dl AST 21 (15-37) U/L ALT 25 (12-78) U/L Alkaline Phosphatase 58 (45-117) U/L Troponin I < 0.015 (0-0.045) ng/ml Total Protein 8.6 H (6.4-8.2) gm/dl Albumin 4.5 (3.4-5.0) gm/dl Globulin 4.1 H (2.5-4.0) gm/dl Albumin/Globulin Ratio 1.1 (0.9-2) Imaging Data Radiologist's Impression: Radiology results as stated below per my review and the radiologist's interpretation: CT angio head w con CLINICAL HISTORY: 78 years-old Male presenting with right sided numbness. TECHNIQUE: Multidetector CT angiography of the head was performed after the administration of intravenous contrast. 3-D volumetric and/or maximum intensity projection (MIP) images were subsequently reconstructed for review. IV contrast: 121 mL of Optiray 320. One or more dose lowering techniques were used consistent with the principles of ALARA (as low as reasonably achievable), including automatic exposure control, mA or kV adjustment to individual patient size, and/or use of iterative reconstruction. COMPARISON: Noncontrast CT head performed earlier today. CT DOSE (mGy.cm): The estimated cumulative dose is 525.19 mGy.cm. 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 Anterior circulation: Atherosclerosis of the cavernous segments of the internal carotid arteries. Intracranial portions of the internal carotid arteries patent to the level of the termini. Anterior cerebral arteries patent. Middle cerebral arteries patent. Anterior communicating artery patent. Posterior circulation: Codominant vertebral arteries. Intradural portions of the vertebral arteries patent. Posterior inferior cerebellar arteries patent. Basilar artery patent. Anterior inferior cerebellar arteries poorly visualized. Superior cerebellar arteries patent. Posterior cerebral arteries patent. Right posterior communicating artery (P-comm) patent. Left P-comm hypoplastic or aplastic. Dural venous sinuses: Patent. Other: Chronic sinusitis of the maxillary sinuses with suspected postsurgical changes. IMPRESSION: 1. No evidence of aneurysm, focal vessel occlusion, or significant stenosis of the intracranial arteries. Electronically signed by: Luis Hair M.D. 05/04/2019 9:[address] head/brain wo con CLINICAL HISTORY: 78 years-old Male presenting with Stroke evaluation, right- sided numbness. TECHNIQUE: Multidetector CT imaging of the head was performed without the use of intravenous contrast. IV contrast: None. One or more dose lowering techniques were used consistent with the principles of ALARA (as low as reasonably achievable), including automatic exposure control, mA or kV adjustment to individual patient size, and/or use of iterative reconstruction. COMPARISON: None. CT DOSE (mGy.cm): The estimated cumulative dose is 537.48 mGy.cm. FINDINGS: [employer]ic topogram: The patient is edentulous. Ventricles and sulci normal in size. No hemorrhage. Periventricular and subcortical white matter hypoattenuation, nonspecific but likely indicative of chronic small vessel ischemic change. Asymmetric hypoattenuation of the hippocampus and medial left temporal lobe (series 2 image 10). Regional sulcal effacement suggests acuity. Additional focal hypoattenuation in the left thalamus, age-indeterminate lacunar infarct. No acute territorial infarct. No mass effect or midline shift. No extra-axial fluid collection. Evidence of chronic sinusitis in the maxillary sinuses with postsurgical changes in the paranasal sinuses. Calvarium intact. IMPRESSION: 1. Findings suspicious for acute infarct in the left medial temporal lobe potentially involving the left hippocampus. 2. Age-indeterminate lacunar infarct in the left thalamus. Acute infarct cannot excluded. MRI could be considered for further evaluation. The report will be called/faxed according to standard departmental protocol for a critical finding. Electronically signed by: Luis Hair M.D. 05/04/2019 8:[address] angio neck with con CLINICAL HISTORY: 78 years-old Male presenting with right sided numbness. TECHNIQUE: Multidetector CT angiography of the neck was performed after the administration of intravenous contrast. 3-D volumetric and/or maximum intensity projection (MIP) images were subsequently reconstructed for review. IV contrast: 121 mL of Optiray 320. One or more dose lowering techniques were used consistent with the principles of ALARA (as low as reasonably achievable), including automatic exposure control, mA or kV adjustment to individual patient size, and/or use of iterative reconstruction. Stenosis measurements were based on NASCET-like criteria (distal lumen diameter as the denominator for stenosis measurement). COMPARISON: None. CT DOSE (mGy.cm): The estimated cumulative dose is 525.19. 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 Aortic arch: Normal three-vessel aortic arch with patent origins of the branch vessels. Innominate artery: Patent. Right subclavian artery: Patent. Right common carotid artery: Patent. Right internal and external carotid arteries: Calcified atherosclerotic plaque at the bifurcation without stenosis of the origins of the right internal or external carotid arteries. Left common carotid artery: Patent. Left internal and external carotid arteries: Calcified atherosclerotic plaque at the bifurcation with less than 50% stenosis of the origin of the left internal carotid artery. The remainder of the left ICA is widely patent. Left ECA also patent. Left subclavian artery: Patent. Vertebral arteries: Codominant vertebral arteries. Origins and courses of the bilateral vertebral arteries patent. Other: Atherosclerotic plaque without significant stenosis of the cavernous segments of the internal carotid arteries. Hypoattenuation along the medial left temporal lobe as mentioned on noncontrast CT head performed earlier today. Degenerative changes of the cervical spine. Extensive chronic sinusitis and postsurgical changes of the paranasal sinuses. Lung apices clear. IMPRESSION: 1. Atherosclerosis with less than 50% stenosis of the origin of the left internal carotid artery. No other evidence of significant stenosis. No vessel occlusion or dissection. Electronically signed by: Luis Hair M.D. 05/04/2019 9:06 PM ECG Data Attestation: I personally reviewed and interpreted this ECG as follows: Indication: weakness Rate (beats per minute): 63 Rhythm: normal sinus Findings: + other (Normal axis); no acute ischemic change Blood Pressure Blood Pressure Findings: Elevated blood pressure Blood Pressure Disposition: further management by hospitalist HANDY Mi The patient is a pleasant 78-year-old gentleman with a past medical history of hypertension, hyperlipidemia, CAD status post angioplasty who presents emergency department with right-sided numbness which began yesterday per hpi. On arrival patient is in no acute distress, afebrile stable vital signs. Given the patient's symptoms began yesterday he was outside of the TPA window and so no indication for stroke alert. On exam the patient has subjective decreased sensation of the right face and right extremities without objective sensory loss. He otherwise has no focal neurologic deficits. EOMI. No nystamgus. PEARRL. Cerebellar function intact including [id number], alternating palms, [id number]. 5/5 strength and SILT x 4 extremities. EKG without overt acute ischemia. WBC, H/H, platelets wnl. Chemistry without acidosis. LFTs and electrolytes unremarkable. Troponin negative. CT head demonstrates likely acute infarct in the left medial temporal lobe. CTA of head and neck with less than 50% stenosis of the origin of the left internal carotid artery and otherwise unremarkable. Findings reviewed with the patient and his family. Resident, Dr. Bucio, discussed the case Dr. Souza, neurology, who agrees with plan for admission for further stroke evaluation including MRI. Dr. Bucio additionally discussed case with Dr. Ashley, [facility] hospitalist, who will evaluate the patient for admission. This patient was managed with the assistance of resident, Dr. Bucio. I discussed the case with the resident, examined the patient, and confirm the findings and plan as documented in this note. Impression & Plan Stroke Discharge Plan Visit Data *Final* Discharge Date/Time: 05/04/19 22:12 Chief Complaint: TIA Symptoms Stated Complaint: STROKE SYMTOMS ED Provider: Haris Guevara ED Midlevel Provider: Zach Bucio Discharge Problem: Stroke Patient Disposition: Admitted As Inpatient Discharge Instructions Interventions: ED Discharge Assessment Last Done: 05/04/19 22:12 Discharge Problem: Stroke Qualifiers: CVA mechanism: unspecified Qualified Code(s): I63.9 - Cerebral infarction, unspecified The scribe's documentation has been prepared under my direction and personally reviewed by me in its entirety. I confirm that the note above accurately reflects all work, treatment, procedures, and medical decision making performed by me.
[2019-05-05 03:39] LABS: Appearance Urine Clear (Clear); Bilirubin Urine Negative (Negative); Blood Urine Negative (Negative); Color Urine Yellow; Glucose Urine UA Negative (Negative); Ketones Urine Negative (Negative); Leukocyte Esterase Urine Negative (Negative); Nitrite Urine Negative (Negative); Protein Urine Negative (Negative); Specific Gravity Urine > 1.045 (1.000-1.030); Urobilinogen Urine Negative (Negative)
[2019-05-05 06:14] LABS: Estimated Average Glucose 128 mg/dl; Hemoglobin A1C 6.1 % (4.5-5.6)
--- NOTE | 2019-05-05 06:53 | Magnetic Resonance Report ---
MR brain wo con HISTORY: Mental status change concern for L medial temporal ischemia CT TECHNIQUE: Multiplanar multisequence MRI of the brain was performed without the use of contrast. COMPARISON STUDY: None. FINDINGS: Findings of acute infarct involving the left posterior internal capsule with extension to t he left temporal lobe. This is in part and middle cerebral arterial distribution. Signal characteristics otherwise indicate moderate chronic small vessel change of the periventricular deep white matter regions. Treatment system is midline. The findings of age-related atrophy. Sella and parasellar regions are unremarkable. Internal auditory canals are symmetric. IMPRESSION: 1. Acute infarct left temporal lobe.. 2. No secondary indication of hemorrhage. 3. Age-related atrophy with moderate to rather significant chronic small vessel change. The above report was generated using voice recognition software. It may contain grammatical, syntax or spelling errors. Electronically signed by: Lincoln Wang M.D. 05/05/2019 6:52 AM
[2019-05-05 07:32] LABS: Basophils # (auto) 0.02 K/uL (0-0.2); Basophils % (auto) 0.3 %; Eosinophils # (auto) 0.11 K/uL (0-0.5); Eosinophils % (auto) 1.8 %; Hematocrit (blood only) 41.1 % (42-52); Hemoglobin 14.4 g/dL (14.0-18.0); Immature Granulocytes # (auto) 0.01 K/uL (0.00-0.02); Immature Granulocytes % (auto) 0.2 %; Lymphocytes # (auto) 1.74 K/uL (1.2-3.4); Lymphocytes % (auto) 28.2 %; Mean Corpuscular Volume 89.5 fL (80-100); Mean Platelet Volume 9.7 fL (7.4-10.4); Monocytes # (auto) 0.75 K/uL (0.11-0.59); Monocytes % (auto) 12.2 %; Neutrophils # (auto) 3.53 K/uL (1.4-6.5); Neutrophils % (auto) 57.3 %; Platelet Count 205 K/uL (130-400); RDW Coefficient of Variation 13.7 % (11.5-14.5); Red Blood Count 4.59 M/uL (4.7-6.1); White Blood Count 6.16 K/uL (4.8-10.8)
[2019-05-05 08:04] LABS: BUN Creatinine Ratio 27.6 (10-20); Calcium 9.2 mg/dl (8.5-10.1); Creatinine Clr Calc Pharmacy 64.5 ml/min; Est GFR (African American) 89.5; Est GFR (Non-African American) 77.3; Potassium 3.8 mmol/L (3.5-5.1)
[2019-05-05] MEDS ORDERED: ATORVASTATIN 40 MG TAB PO SCH ×2 (09:00→21:00)
--- NOTE | 2019-05-05 09:34 | Neurology Consultation ---
Date of Consultation May 05, 2019 Assessment & Plan (1) Stroke: Acute ischemic stroke involving the medial left temporal lobe as well as the left thalamus. (The acute left thalamic infarct was also evident on MRI but not specifically mentioned in the report.) Clinically, this patient has a mild right hemisensory deficit and very subtle right-sided weakness that are likely related to the thalamic infarct. The medial left temporal lobe infarct may not be causing any specific neurological signs or symptoms at this time. His CT angiography of the head was unremarkable, while the CT angiography of the neck revealed only a 50% stenosis at the origin of the left internal carotid artery which I think is probably incidental. No evidence of atrial fibrillation. Stroke risk factors for this patient include hypertension, hyperlipidemia, and a history of coronary artery disease. I agree with the addition of Plavix to his medication regimen. However, I would recommend that he discontinue daily low- dose aspirin if he is going to continue with Plavix going forward. Dual antiplatelet therapy is not typically recommended for long-term secondary stroke prevention. Systolic blood pressure goal 140 to 160 mmHg for the time being. Consultations with PT/OT/speech therapy. Follow-up with transthoracic echocardiogram results. No further immediate recommendations. History of Present Illness Reason for Consultation: Right sided numbness Requesting Physician: Kedar Koenig MD Attending Physician: Manav Schmitz History of Present Illness The patient is an 78-year-old male with a chief complaint of right-sided weakness and numbness that began acutely 2 days ago at about 1 in the afternoon when he was working in the garden. He recalls suddenly feeling dizzy at symptom onset and recalls that his vision temporarily blacked out for a few seconds although he did not have any associated loss of consciousness or fall. He then began to feel some numbness and heaviness affecting the right arm and leg that seemed to be mild. He was able to walk back to his house. He did not seek medical care until the following day as the symptoms have been persistent. He has not had any further episodes of dizziness or vision change. He continues to complain of some mild weakness affecting the right arm and leg with some subtle loss of dexterity affecting the right hand. He denies headache or neck pain. Additional details as below. Allergies Allergy/AdvReac Type Severity Reaction Status Date / Time No Known Allergies Allergy Unknown Verified 05/04/19 20:10 Home Medications Home Medications Medication Instructions Recorded Confirmed Type aspirin 81 mg PO DAILY 05/04/19 05/04/19 History atorvastatin 10 mg PO DAILY 05/04/19 05/04/19 History calcium carbonate-vitamin D3 1 tab PO QPM 05/04/19 05/04/19 History [Calcium 500 + D (D3)] irbesartan 300 mg PO QPM 05/04/19 05/04/19 History metoprolol tartrate 12.5 mg PO BID 05/04/19 05/04/19 History Patient History Medical History IPMN (intraductal papillary mucinous neoplasm) (Acute) Hypertension (Acute) Hypercholesterolemia (Acute) CAD S/P percutaneous coronary angioplasty (Acute) Family History Other Family history non-contributory Social History Preferred Language: Mexican Communication Ability: Effective 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 Beliefs That Will Affect Care: None Current Living Situation: Spouse Other Information That Helps Us Care for You: No Feels Safe at Home: Yes Safety Concerns: Feels Safe At This Time Smoking Status: Never smoker Do You Dip or Chew Tobacco: No Second Hand Exposure: No Tobacco Cessation Education Requested by Patient: No Hx Alcohol Use: No Hx Substance Use: No Review of Systems Constitutional: no fever and no chills Eyes: as per Subjective / HPI; no diplopia Ear, Nose, Mouth, Throat: no hearing loss Respiratory: no cough and no dyspnea Cardiovascular: no chest pain and no palpitations Gastrointestinal: no nausea and no vomiting Genitourinary: no dysuria Musculoskeletal: no myalgia Integumentary: no rash and no lesions Neurologic: as per Subjective / HPI Psychiatric: no depression and no anxiety Hematologic / Lymphatic: no easy bleeding and no easy bruising Physical Exam Physical Exam: The patient is a well-developed, well-nourished elderly male. He is alert and fully oriented. Recent and remote memory intact. Attention and concentration normal. Patient exhibits a normal spontaneous speech pattern. He is able to name objects and repeat phrases. Patient exhibits an age-appropriate fund of knowledge and normal comprehension of vocabulary. Visual thacker full to confrontation. Visual acuity normal. Pupils equal round react to light and accommodation. Eye movements normal. There is no nystagmus. There is a decrease to facial sensation on the right. There is a mild right lower facial droop. Hearing intact. Palate elevates to midline. Shoulder shrug intact. Tongue protrudes to midline. There is a mild deficit to all sensory modalities for the right arm and leg. Normal sensation for the left arm and leg. Deep tendon reflexes are slightly increased for the right arm and leg, normal for the left arm and leg. The right plantar responses upgoing, left plantar response downgoing. There is slight dysmetria with qiyvca-ey-wwdr and [id number]-[id number]-[id number] on the right. No dysmetria with ovsvwq-cg-obso or mphe-dj-soip on the left. Ophthalmoscopic examination reveals normal-appearing optic disks and posterior segments. No papilledema or hemorrhages. Carotid pulses normal bilaterally, no bruits to auscultation. Gait is slightly unsteady on the right. Station normal. Muscle strength is grossly normal for all 4 limbs although there is slight impairment of movement initiation for the right arm and leg as well as some modest impairment of fine finger movements for the right hand. There is also pronator drift for the right upper extremity. There is no atrophy. No abnormal movements observed. Results & Data Vital Signs (Past 12 Hours) Vital Signs Temp Pulse Pulse Resp BP BP Pulse Ox 05/05/19 07:01 36.7 C 58 L 18 150/65 H 97 05/05/19 07:00 58 L 05/05/19 06:23 52 L 167/73 H 05/05/19 03:15 36.8 C 52 L 18 182/71 H 97 05/05/19 00:39 60 05/05/19 00:00 36.7 C 65 18 160/73 H 96 05/04/19 22:12 60 19 163/71 H 96 05/04/19 22:01 60 19 163/71 H 96 05/04/19 21:31 61 13 166/63 H 97 Laboratory Results Recently completed labs reviewed. WBC 6.16, hemoglobin 14.4, hematocrit 41.1, platelet count 205, sodium 140, potassium 3.8, BUN 26, creatinine 0.93, glucose 114, hemoglobin A1c 6.1, calcium 9.2, magnesium 2.5, troponin less than 0.015, lipid panel within normal limits. Diagnostic Findings A CT of the head completed yesterday revealed findings consistent with an acute infarct within the left medial temporal lobe as well as possibly the left thalamus. Images and report reviewed. CTA of the head was negative for aneurysm, focal vessel occlusion, or significant stenosis of the intracranial arteries. CTA of the neck revealed atherosclerotic change with a less than 50% stenosis at the origin of the left internal carotid artery. MRI of the brain revealed findings consistent with an acute infarct within the left temporal lobe as well as an acute infarct within the left thalamus. (The acute left thalamic infarct was not specifically mentioned in the radiology report.) Images and report reviewed. Electrocardiogram completed yesterday reveals a normal sinus rhythm, 63 bpm. (1) Stroke CVA mechanism: unspecified Qualified Code(s): I63.9 - Cerebral infarction, unspecified
[2019-05-05] MEDS: ASPIRIN 81 MG ECTAB PO SCH (09:57)
[2019-05-05] MEDS: CLOPIDOGREL BISULFATE 75 MG TAB PO SCH (09:58)
--- NOTE | 2019-05-05 20:02 | Hospitalist Progress Note ---
Date of Service May 05, 2019 Assessment & Plan (1) Stroke: left sided thalamic stroke with resulting right-sided motor/sensory symptoms -- all improved today. appreciate neurology consultation. stopped asa. using plavix now for secondary prophylaxis. work-up thus far - echo w/o thrombus; no a.fib on tele; no significant intra or extra-cranial stenosis. likely small vessel ischemia. continue statin. consider outpatient 30-day monitor. PT,OT,speech evals done; cleared for home. observe overnight d/c tomorrow if well (2) Hypertension: allow permissiveness today then start to bring BPs down tomorrow (3) Hypercholesterolemia: statin high intensity (4) CAD S/P percutaneous coronary angioplasty: no ischemic symptoms at this time. continue BB, plavix, statin. echo with wall motion abnormalities will need to investigate if this is OLD or NEW likely will need cardiology f/u cardiac event was 12-13 years ago - could easily have significant restenosis or worsening of old stenoses (5) Prostate cancer: noted no issues at this time (6) IPMN (intraductal papillary mucinous neoplasm): noted this needs annual surveillance with imaging (7) DVT prophylaxis: if patient stays beyond tonight then start lovenox 40mg daily Subjective patient feeling well. tele - no a.fib. right leg weakness IMPROVED in comparison to yesterday already. right sided sensory disturbance also improved. ambulated very well with PT/OT -- no rehab recommended. denies other complaints. speech ok. no swallowing issues. Review of Systems Constitutional: no fever and no chills Respiratory: no dyspnea and no dyspnea on exertion Cardiovascular: no chest pain Gastrointestinal: no abdominal pain Physical Exam Constitutional: well developed and well nourished; no acute distress speech clear, no obvious facial droop ENMT: external ear and nose normal, oropharynx normal Respiratory: normal respiratory effort, lungs clear to auscultation Cardiovascular: RRR, no murmur, no edema Heart Sounds: normal S1 and normal S2 Vessels: posterior tibial pulses present and dorsalis pedis pulses present; no JVD Gastrointestinal (Abdomen): normal bowel sounds, soft, nontender, no hepatosplenomegaly Neurologic: no pronator drift; strength arms seems symmetric 5/5; rapid alternating movements both hands symmetric; scant/slight assymmetry in strength right foot/ankle vs left foot/ankle; gait not tested Results & Data Vital Signs (Past 12 Hours) Vital Signs Temp Pulse Pulse Pulse Resp BP Pulse Ox 05/05/19 19:39 36.8 C 58 L 18 175/78 H 95 05/05/19 16:00 60 05/05/19 15:54 36.5 C 51 L 18 170/74 H 96 05/05/19 15:09 97 05/05/19 11:09 36.8 C 59 L 16 152/68 H 97 PG Care Time/CCT Total # of Minutes Spent Total Time Spent with Patient: Total time spent is greater than 50% in coordination of care (as documented) at patient's floor/unit and/or counseling patient: (1) Hypertension Hypertension type: essential hypertension Qualified Code(s): I10 - Essential (primary) hypertension (2) Stroke CVA mechanism: unspecified Qualified Code(s): I63.9 - Cerebral infarction, unspecified
[2019-05-06 07:03] LABS: Basophils # (auto) 0.02 K/uL (0-0.2); Basophils % (auto) 0.3 %; Eosinophils # (auto) 0.14 K/uL (0-0.5); Eosinophils % (auto) 2.4 %; Hematocrit (blood only) 42.2 % (42-52); Hemoglobin 14.9 g/dL (14.0-18.0); Immature Granulocytes # (auto) 0.01 K/uL (0.00-0.02); Immature Granulocytes % (auto) 0.2 %; Lymphocytes # (auto) 1.96 K/uL (1.2-3.4); Lymphocytes % (auto) 33.3 %; Mean Corpuscular Hgb Conc 35.3 g/dL (32-36); Mean Corpuscular Volume 88.3 fL (80-100); Mean Platelet Volume 9.6 fL (7.4-10.4); Monocytes % (auto) 10.2 %; Neutrophils # (auto) 3.16 K/uL (1.4-6.5); Neutrophils % (auto) 53.6 %; Platelet Count 216 K/uL (130-400); RDW Coefficient of Variation 13.6 % (11.5-14.5); RDW Standard Deviation 44.1 fL (36.4-46.3); Red Blood Count 4.78 M/uL (4.7-6.1); White Blood Count 5.89 K/uL (4.8-10.8)
[2019-05-06 07:18] VITALS: BP 135/74; TEMP 98.4; O2SAT 97
[2019-05-06 07:44] LABS: BUN Creatinine Ratio 21.8 (10-20); Calcium 9.6 mg/dl (8.5-10.1); Creatinine Clr Calc Pharmacy 55.9 ml/min; Est GFR (African American) 76.4; Potassium 3.9 mmol/L (3.5-5.1)
[2019-05-06] MEDS: ASPIRIN 81 MG ECTAB PO SCH (07:51)
[2019-05-06] MEDS: METOPROLOL TARTRATE 25 MG TAB PO SCH (07:51)
[2019-05-06] MEDS: CLOPIDOGREL BISULFATE 75 MG TAB PO SCH (07:51)
[2019-05-06 11:23] VITALS: PULSE 59
[2019-05-06] MEDS ORDERED: STROKE PATIENT DISCHARGE STA (11:27)
--- NOTE | 2019-05-06 15:11 | Pharmacy Report ---
Pharmacist Stroke Counseling - Date of Service May 06, 2019 - Scope: Pharmacy has been consulted to provide medication discharge counseling for this patient admitted with [ischemic stroke] [hemorrhagic stroke] [transient ischemic attack] as per the Pharmacist Discharge Counseling for Stroke Patients Noah wu - Medications on Discharge: Home Medications Medication Instructions Recorded Confirmed calcium carbonate-vitamin D3 1 tab PO QPM 05/04/19 05/04/19 [Calcium 500 + D (D3)] irbesartan 300 mg PO QPM 05/04/19 05/04/19 metoprolol tartrate 12.5 mg PO BID 05/04/19 05/04/19 New Rx's Medication Instructions Recorded atorvastatin 40 mg PO DAILY #30 tab 05/06/19 clopidogrel 75 mg PO QAM #30 tab 05/06/19 - Action: The above medications, specifically ones for stroke treatment/prophylaxis, have been reviewed in detail with the patient and/or patient employee relations representative(s) prior to discharge. This includes indication, common adverse reactions, drug interactions, and medication administration. Medication counseling has been employed using the teach-back method to ensure understanding. - Outcome: The patient and/or patient employee relations representative(s) have demonstrated understanding of the medications. Please note, they are aware that the pharmacist will call them within 72 hours post-discharge to confirm that the appropriate medications are being taken and answer any further medication related questions the patient might have at that time. Contact information Individual to be contacted: patient Relationship to patient (if applicable): n/a Phone number: [phone] Best time to call: anytime Additional comments: Patient pleasant to talk with today. Neuro had recommended him stop aspirin and start plavix on discharge. Made sure patient knew to stop aspirin. Patient was not very familiar with drug names as his is the one who manages his medications for him. She was not present during interview. Told him when he gets home to go through his medication bottles with his . Patient agreed to do this. Patient aware we will be contacting him in a couple days to review medications again with him. Thank you for allowing pharmacy to be involved in the care of this patient. Please call [phone] with any additional questions
--- NOTE | 2019-05-09 10:47 | Pharmacy Report ---
Pharmacist Post D/C Phone Note - Phone Note: Date of phone call: May 09, 2019. Individual with whom pharmacist spoke to: MRS. RYDER () The following questions were reviewed during the phone call with responses listed below each: Can you tell me the medications that you are currently taking as well as when and how you take each medication? -See Table Below When have you missed any doses of your medications? - Denies. hands patient medications every day. She does not use a pillbox. What side effects are you having from your medications, specifically, the new medications you were started on? - Denies at this time. What questions do you have about your medications? - No questions at this time What problems are you having obtaining your medications? - Denies at this time When is your next appointment with your primary care doctor? - 05/13/19 Additional comments: * Patient was not home today, but manages his medications anyways. She reports that he is doing well. * He was actually on Plavix in the past after his [place] >10 years ago. She does no t recall he had any major bleeding/bruising issues in the past. Aware to monitor for s/sx bleeding/bruising and report to his provider. * She confirms patient has D/C'd aspirin. * Confirms taking higher dose of Lipitor. * No problems/issues reported today. seems very familiar and knowledgeable about the patient's medications. She makes sure he takes his Rx's. As per the Pharmacist Discharge Counseling for Stroke Patients Protocol, this phone call has been completed within 72 hours of discharge. Thank you for allowing us to be involved in the care of this patient. - Home Medications: Home Medications Medication Instructions Recorded Confirmed calcium carbonate-vitamin D3 1 tab PO QPM 05/04/19 05/04/19 [Calcium 500 + D (D3)] irbesartan 300 mg PO QAM 05/04/19 05/04/19 metoprolol tartrate 12.5 mg PO BID 05/04/19 05/04/19 New Rx's Medication Instructions Recorded atorvastatin 40 mg PO DAILY #30 tab 05/06/19 clopidogrel 75 mg PO QAM #30 tab 05/06/19
--- NOTE | 2019-05-15 21:17 | Discharge Summary ---
Date of Service date of admission - May 04, 2019 date of discharge - May 06, 2019 Admission HPI Per Admitting Provider 78-year-old male with past medical history of coronary artery disease status post angioplasty 13 years ago, prostate adenocarcinoma status post radical prostatectomy and radiation, hypertension, hyperlipidemia presents with right- sided weakness that started yesterday and now numbness. Patient reports taking out weeds yesterday from his yard when he felt lightheaded, nauseous, and for a couple minutes could not see anything. He rested and was then able to walk to his truck. However, he noticed difficulty pushing the gas pedal with his right foot. He also noticed right arm weakness. He denied any pain at that time. He was able to drive himself home and rested for the day. He woke up this morning feeling tired and when he went on a walk he noticed his right foot and leg were not tracking as well. His family then brought him to the emergency room. Currently he has some weakness and also reports numbness mainly in his right leg. He denies any fever, chills, headache, lightheadedness, shortness of breath, chest pain, nausea, vomiting, abdominal pain, diarrhea/constipation, dysuria, hematuria. Principal Diagnosis left-sided stroke with resulting mild right-sided weakness Discharge Exam Constitutional well developed and well nourished; no acute distress ENMT external ear and nose normal, oropharynx normal Respiratory normal respiratory effort, lungs clear to auscultation Cardiovascular RRR, no murmur, no edema Heart Sounds: normal S1 and normal S2 Vessels: posterior tibial pulses present and dorsalis pedis pulses present; no JVD Gastrointestinal (Abdomen) normal bowel sounds, soft, nontender, no hepatosplenomegaly Neurologic scant right leg weakness; no right arm weakness; no pronator drift; speech fluent and clear Psychiatric A+Ox3, euthymic affect Discharge Data Allergies Allergy/AdvReac Type Severity Reaction Status Date / Time No Known Allergies Allergy Unknown Verified 05/13/19 13:35 Consultations neurology - Parvez Sozua MD PT, OT, speech Ordered Studies 1. MRI brain - FINDINGS: Findings of acute infarct involving the left posterior internal capsule with extension to the left temporal lobe. This is in part and middle cerebral arterial distribution. Signal characteristics otherwise indicate moderate chronic small vessel change of the periventricular deep white matter regions. Treatment system is midline. The findings of age-related atrophy. Sella and parasellar regions are unremarkable. Internal auditory canals are symmetric. 2. CT head - IMPRESSION: 1. Findings suspicious for acute infarct in the left medial temporal lobe potentially involving the left hippocampus. 2. Age-indeterminate lacunar infarct in the left thalamus. Acute infarct cannot excluded. MRI could be considered for further evaluation. 3. CT angio head and neck - 1. No evidence of aneurysm, focal vessel occlusion, or significant stenosis of the intracranial arteries. 2. Atherosclerosis with less than 50% stenosis of the origin of the left internal carotid artery. No other evidence of significant stenosis. No vessel occlusion or dissection. 4. echocardiogram - * normal LV function * no PFO * no thrombus * inferior and posterior apex hypokinesis Hospital Course (1) Stroke: Left sided thalamic stroke with resulting right-sided motor/sensory symptoms -- all symptoms/signs improved prior to discharge. Seen in consult by neurology - Parvez Souza MD. Recommendation - STOP aspirin, start plavix for secondary prophylaxis. Stroke work-up was negative -- echo w/o thrombus; no a.fib on telemetry; no significant intra or extra-cranial stenosis. Likely small vessel ischemia caused the stroke. Continue statin (lipitor 40mg daily). PT,OT,speech evals done; cleared for home. A 30-day monitor was recommended to r/o paroxysmal a.fib. The monitor will be mailed to his home. He will follow-up with Dr Souza in the neurology clinic in 4-6 weeks. (2) Hypertension: Continue ARB and beta keon. (3) Hypercholesterolemia: statin - high intensity (4) CAD S/P percutaneous coronary angioplasty: No ischemic symptoms during the stay. He will continue BB, plavix, statin. Echo with wall motion abnormalities as noted in this summary. Will need to investigate if these abnormalities are OLD or NEW. 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 The cardiac event he had had in the past was 12-13 years ago - could easily have significant restenosis or worsening of old stenoses. (5) Prostate cancer: noted no issues at this time (6) IPMN (intraductal papillary mucinous neoplasm): noted this needs annual surveillance with imaging Total Time Total Time Spent Total Time Spent (In Minutes): 35 Total Time Includes: Examination of the Patient, Discharge Planning and Medication Reconciliation Discharge Plan Discharge Items Patient Disposition: Home - Self-Care Reason For Visit: RIGHT SIDED WEAKNESS AND NUMBNESS Discharge Diagnosis: Left sided stroke with resulting right sided weakness Discharge Goals: Diagnostic testing and Therapeutic intervention Activity: As commented below Activity Comment: take it easy for about 1 week then gradually increase activities Lifting: Gradually increase as tolerated Exercise/Sports: Wait until after follow-up appointment Driving/Machine Use: Resume 3 days after discharge Non-emergency contact: Primary Care Provider Call non-emergency contact if: you have any medication questions, your symptoms worsen and your temperature is above 100.5 Follow-up/Referrals: Parvez Souza MD [Physician] - (see Dr Souza 1 month Their office will call you with an appt., a "task" was sent to them to schedule you.) Jl Montilla MD [Primary Care Provider] - 05/13/19 1:30 pm (Appt. made for you with SONU Howell in Dr. Montilla's office on May 13 at 1:30pm. She will discuss arranging the 30 day event monitor with you.) Alan Ruggiero MD [Family Provider] - (Dr. Ruggiero's office will call you with an appt. There was one scheduled for June 01 but it had to be cancelled. ) Diet: Heart Healthy Addtl Provider Instructions: From Manav Schmitz - hospitalist - You were treated for a left-sided stroke that resulted in mild weakness to your right hand and leg. It also caused some numbness. All symptoms are improving nicely. You were seen by the neurologist who recommended STOPPING your aspirin and instead taking plavix daily to prevent a future stroke. He also recommended INCREASING your lipitor to 40mg once a day. I have sent both medications to your pharmacy for you. We did not find a specific cause of your stroke. Your heart monitoring was normal. Your echocardiogram did not show a blood clot in the heart. You have mild plaque build-up in the arteries of your neck but not enough to have caused your stroke. The arteries in the head were normal. Your echocardiogram shows signs of your old heart attack from years ago but it also appears to show possibly an area of muscle that may not be getting enough blood flow. Recommendations - 1. STOP your aspirin. 2. START plavix (clopidogrel) 75mg once daily. 3. INCREASE your lipitor (atorvastatin) to 40mg once daily. 4. see neurology in 1 month. 5. see cardiology in about a month. 6. see your family doctor in 1 week. 7. avoid driving and heavy machinery use for a few days. Avoid strenuous activities for about 1 week. 8. wear a 30-day monitor at your home to see if you have an abnormal heart rhythm that could have caused your stroke. Results will go to your family doctor and Dr Ruggiero. Additional stroke instructions - Risk Factors for Stroke: You can reduce your chances of stroke by working with your medical provider to adopt a healthy lifestyle. Some specific ways to lower your chance of stroke are: * If you are a smoker, now is the time to stop smoking cigarettes * If you are diabetic, improve the control of your blood sugars * Avoid excessive amounts of alcohol * Control high blood pressure * Lose weight if you are overweight * Be sure to lead an active lifestyle * Eat a healthy diet low in salt, cholesterol and fat You should know about other risk factors for stroke that you are unable to control. These include: * Age 55 years or older * Male gender * Certain racial groups: , or / * Family History of Stroke, Mini stroke or Heart Attack * Sickle Cell Disease Follow Up: It is important for you to keep your follow up appointments with your medical provider. Who to Call and When: Medical Emergencies: Call 911 immediately if you experience any of the following warning signs and symptoms of Stroke: * Sudden numbness or weakness of the face, arm or leg, especially on one side of the body * Sudden confusion, trouble speaking or understanding * Sudden trouble seeing in one or both eyes * Sudden trouble walking, dizziness, loss of balance or coordination * Sudden severe headache with no cause Do not delay calling 911 if you experience any warning signs or symptoms of a stroke. Delay in seeking medical attention may affect what treatments can be given to you. . Follow up -- see separate section. Return to [facility] if -- * you have chest pains or shortness of breath * you have worsening numbness, weakness, etc of any limb * you have severe dizziness * you have difficulty speaking or swallowing * any other concerns Prescriptions: New clopidogrel 75 mg Tablet 75 mg PO QAM Qty: 30 RF: 5 atorvastatin 40 mg tablet 40 mg PO DAILY Qty: 30 RF: 5 Continued irbesartan 300 mg tablet 300 mg PO QAM RF: 0 metoprolol tartrate 25 mg tablet 12.5 mg PO BID RF: 0 calcium carbonate-vitamin D3 [Calcium 500 + D (D3)] 500 mg(1,250mg) -125 unit Tablet 1 tab PO QPM RF: 0 Discontinued aspirin 81 mg Tablet,Delayed Release (Dr/Ec) 81 mg PO DAILY RF: 0 Stand-Alone Forms: [facility]/Other Patient Handouts: Prediabetes, ED Stroke Completed Discharge Orders: Discharge Order (Routine); Ordered 05/06/19 Ordered By: Manav Schmitz Admission Data Admit Date/Time: 05/04/19 21:34 Attending Provider: Manav Schmitz Admit Provider: Eliot Ashley Primary Care Provider: Jl Montilla Other Providers: Parvez Souza Service: Telemetry Medical Other Interventions: Discharge Summary Assessment (RN) Last Done: 05/06/19 11:20 Pending Studies at Discharge: No DC Date/Time DO NOT enter until pt leaves facility: 05/06/19 13:20
== END 2019-05-06 13:20 | disposition home or self-care (01) | DRG 65 ==
LOC: ED 18:47 → 2W 21:34 → SUATTDRO 21:34 → 2W 22:12